=== PATIENT | male | born 1970 | race Caucasian/White ===

== ENCOUNTER → 2022-10-10 10:28 | Outpatient (CLI) | payer OTHER, MEDICAID, SELFPAY ==
[2022-10-10 19:43] LABS: Alanine Aminotransferase 34 IU/L (<50); Albumin 4.4 g/dL (3.5-5.0); Albumin Globulin Ratio 1.5 (1.0-2.8); Alkaline Phosphatase 72 U/L (38-126); Aspartate Aminotransferase 38 IU/L (17-59); BUN Creatinine Ratio 14.8 (6-22); Bilirubin Total 0.6 mg/dL (0.2-1.3); Blood Urea Nitrogen 13 mg/dL (9-20); Carbon Dioxide 32 mmol/L (22-32); Chloride 100 mmol/L (98-107); Cholesterol 217 mg/dL (140-199); Estimated Glomerular Filt Rate > 60 mL/min (>60); Globulin 2.9 g/dL (1.7-4.1); Glucose 77 mg/dL (70-100); HDL Cholesterol 77 mg/dL (40-60); HEMOLYSIS < 15 (0-50); LDL Cholesterol Calculated 111 mg/dL (<100); Potassium 4.2 mmol/L (3.4-5.1); Sodium 138 mmol/L (137-145); Total Protein 7.3 g/dL (6.3-8.2); Triglycerides 145 mg/dL (35-150)
[2022-10-12 02:51] LABS: Labcorp Hemoglobin (Hb) A1c 5.3 % (4.8-5.6)
== END ==
PROVIDERS: PCP Physician Assistant; Visit Provider Physician Assistant
DX: R73.09 Other abnormal glucose (principal); Z13.220 Encounter for screening for lipoid disorders
CPT/HCPCS: 80053; 80061; 83036

== ENCOUNTER → 2023-06-11 10:39 | Outpatient (CLI) | payer OTHER, MEDICAID, SELFPAY ==
--- NOTE | 2023-06-11 10:40 | DI.MRI.S_ITS ---
PROCEDURE: MR CERVICAL SPINE WO CON INDICATIONS: neck pain and stiffness s/p trauma 6 months ago TECHNIQUE: Noncontrast sagittal T1 spin echo and T2 fast spin echo, sagittal STIR, foraminal oblique sagittal T2 fast spin echo, and axial gradient echo or T2 fast spin echo through the cervical spine. COMPARISON: None. FINDINGS: Image quality: Excellent. Alignment and Curvature: There is normal bony alignment. Bone Marrow: Marrow demonstrates normal overall signal. Spinal Cord: Visualized spinal cord has normal size and signal. No cerebellar tonsillar herniation. Paraspinous Soft Tissues: No paravertebral masses. Prevertebral soft tissues are normal in thickness. C2-C3: Normal appearance. C3-C4: Minimal disc bulge. Bilateral facet hypertrophy. Bilateral uncovertebral joint hypertrophy, prominent on the right. No central canal stenosis. AP diameter of the central canal is 11.6 mm. Bilateral severe foraminal narrowing with bilateral foraminal C4 nerve root impingement. C4-C5: Bilateral facet hypertrophy. No central canal stenosis. AP diameter of the central canal is 12.0 mm. Bilateral uncovertebral joint hypertrophy. Left facet hypertrophy. [id number] right foraminal narrowing. Moderate to severe left foraminal narrowing with a degree of left foraminal C5 nerve root impingement. C5-C6: Moderate diffuse disc bulge. Moderate central canal stenosis. AP diameter of the central canal is 8.8 mm. Bilateral uncovertebral joint hypertrophy. Severe bilateral foraminal narrowing with bilateral foraminal C6 nerve root impingement. C6-C7: No canal stenosis. AP diameter of the central canal is 12.0 mm. Bilateral uncovertebral joint hypertrophy and facet hypertrophy. Moderate left foraminal narrowing with mild flattening deformity on the exiting left C7 nerve root. C7-T1: No canal stenosis or foraminal stenosis. IMPRESSION: 1. Underlying multilevel cervical spondylitic change, with multilevel facet arthropathy and uncovertebral joint hypertrophy. 2. There is moderate canal stenosis at C5-C6. No canal stenosis at other levels. 3. Multilevel foraminal narrowing as described above. Findings include severe bilateral foraminal narrowing at C3-C4, moderate to severe left foraminal narrowing at C4-C5, and severe bilateral foraminal narrowing at C5-C6. There is a degree of foraminal nerve root impingement at these levels. Dictated by: Leo West M.D. on 06/11/2023 at 14:36 Approved by: Leo West M.D. on 06/11/2023 at 14:59
== END ==
PROVIDERS: PCP Physician Assistant; Referring Provider Physician Assistant; Visit Provider Physician Assistant
DX: S19.9XXA Unspecified injury of neck, initial encounter (principal); S16.1XXA Strain of muscle, fascia and tendon at neck level, initial encounter; M47.812 Spondylosis without myelopathy or radiculopathy, cervical region; M48.02 Spinal stenosis, cervical region; X58.XXXA Exposure to other specified factors, initial encounter
CPT/HCPCS: 72141

== ENCOUNTER → 2025-06-15 14:41 | Outpatient (CLI) | payer OTHER, SELFPAY ==
--- NOTE | 2025-06-15 14:43 | DI.CT.S_ITS ---
PROCEDURE: CT HIP RIGHT WITHOUT CON INDICATIONS: Assess healing at fracture, 3 months since surgery TECHNIQUE: Noncontrast 3 mm axial sections acquired through the bony pelvis. Additional 3 mm axial sections acquired through the symptomatic hip joint, with coronal and sagittal reformats. COMPARISON: [facility], CR, ORTHO-XR HIP RT 2V, 06/10/2025, 16:10. FINDINGS: Image quality: Excellent. Bones: Mild lower lumbar facet arthropathy. Mild degenerative changes of bilateral sacroiliac joint with anterior bridging osteophyte bilaterally. The sacrum is intact. Moderate degenerative changes of the right hip with joint space narrowing and femoral head osteophytosis. Cephalomedullary fixation of a chronic intertrochanteric fracture of the right femur, in near anatomic alignment. No significant bridging callus formation. No hardware complication. Moderate to severe degenerative changes of the left hip, with large left femoral head osteophytosis. No acute fracture or dislocation of the left hip. Soft tissues: Calcifications in the prostate, which is mildly enlarged. No pelvic lymphadenopathy. Small right fat containing inguinal hernia. IMPRESSION: Cephalomedullary fixation of is a chronic intertrochanteric fracture of the right femur, in near anatomic alignment. No significant bridging callus formation. No hardware complication. Dictated by: Yahaira Correa M.D. on 06/15/2025 at 16:22 Approved by: Yahaira Correa M.D. on 06/15/2025 at 16:33
--- NOTE | 2025-06-15 14:48 | DI.CT.S_ITS ---
PROCEDURE: CT ABDOMEN LIVER PROTOCOL INDICATIONS: L. Hepatic Lobe enhancing lesion indeterminate TECHNIQUE: 4 phase scanning was performed. Non-contrast 5 mm axial sections acquired from the diaphragm to the iliac crests. Following the administration of intravenous contrast, 5 mm thick arterial-phase, portal venous-phase, and 5-minute delayed phase images were acquired through the liver. 5 mm thick coronal and sagittal reformats were performed. For radiation dose reduction, the following was used: automated exposure control, adjustment of mA and/or kV according to patient size. COMPARISON: Outside Facility, CT, CT ABDOMEN PELVIS W CON, 03/07/2025, 2:02. FINDINGS: Image quality: Excellent. Lower chest: Unremarkable. ABDOMEN: Liver: Non cirrhotic liver morphology. There are 3 liver lesions which demonstrate indeterminate imaging properties. These measure 1 centimeter in segment 7 (series 5, image 29) 1.4 centimeter in segment 2/3 (series 5, image 32), , 2.2 centimeter in anterior segment 2/3 (series 5, image 32), and 0.9 centimeter in segment 2 (series 5, image 49). These lesions remain relatively hypoattenuating on all sequences. These previously demonstrated peripheral, discontinuous enhancement on CT dated 03/07/2025. Gallbladder: No radiopaque gallstones or wall thickening. Biliary ducts: No biliary dilation. Pancreas: No ductal dilation. Spleen: Size is within normal limits. Adrenal Glands: No adrenal nodules. Kidneys and Ureters: No hydronephrosis. No solid mass. No complex renal cystic lesion which requires follow up. Stomach and Bowel: Normal colonic caliber, without significant wall thickening. Peritoneum: No abnormal intraperitoneal fluid. No free air. Ventral Wall: No hernia. Abdominal Nodes: No retroperitoneal or mesenteric adenopathy by size criteria. Vessels: Aorta and inferior vena cava are normal in size. PELVIS: Pelvic Organs: Unremarkable. Bladder: Unremarkable. Pelvic Nodes: No enlarged lymph nodes. Miscellaneous: No inguinal hernias are seen. Bones: No aggressive osseous abnormality. IMPRESSION: Four liver lesions which demonstrate indeterminate imaging properties on this examination. However, on the CT dated 03/07/2025, the lesions demonstrated peripheral, discontinuous enhancement. Findings favor hemangiomas, despite atypical features on today's examination. This could be confirmed with MRI if necessary. Otherwise, six-month follow-up with single phase CT the abdomen with contrast is recommended to ensure stability. Dictated by: Justin Bosch M.D. on 06/21/2025 at 12:44 Approved by: Justin Bosch M.D. on 06/21/2025 at 12:58
[2025-06-15 15:31] LABS: Estimated Glomerular Filt Rate > 60 mL/min (>60)
== END ==
PROVIDERS: PCP Physician Assistant; Referring Provider Physician Assistant; Visit Provider Physician Assistant Surgical
DX: S72.141A Displaced intertrochanteric fracture of right femur, initial encounter for closed fracture (principal); K76.9 Liver disease, unspecified
CPT/HCPCS: 36415; 73700; 74170; 82565; Q9967